=== PATIENT | female | born 1965 | race Caucasian/White ===

== ENCOUNTER 2016-12-20 05:43 | Inpatient (IN) | payer OTHER ==
[2016-12-20] VITALS (19 sets, daily range): BP systolic 91–143; BP diastolic 50–87; PULSE 52–73; RESP 10–33; Ht 160 cm; Wt 47.6 kg
[~2016-12-20] VITALS: Ht 160 cm; Wt 47.6 kg
[2016-12-20] MEDS ORDERED: SOD CHLORIDE 0.9% 100 ML, TRANEXAMIC ACID 3,000 MG IRR SCH ×2 (06:00)
[2016-12-20] MEDS ORDERED: DEXAMETHASONE 1 MG TAB PO SCH (06:00)
[2016-12-20] MEDS ORDERED: TRANEXAMIC ACID 1,000 MG in SOD CHLORIDE 0.9% 100 ML IVPB SCH (06:00)
[2016-12-20] MEDS ORDERED: BUPIVACAINE 0.5% (SDV) 30 ML, morphine SULFATE (PF) 8 MG, EPINEPHrine 0.3 MG, KETOROLAC... IRR SCH ×7 (06:00)
[2016-12-20] MEDS ORDERED: LACTATED RINGER'S 1,000 ML IV* SCH (06:00)
[2016-12-20] MEDS ORDERED: CEFAZOLIN 2 GM/50 ML (PMX) 50 ML IVPB SCH (06:00)
[2016-12-20] MEDS ORDERED: VALA500T PO (06:04)
[2016-12-20] MEDS ORDERED: DOXY100T20 PO (06:04)
[2016-12-20] MEDS ORDERED: CA CHLORIDE 10% 10 ML SYRINGE ONE (06:43)
[2016-12-20] MEDS ORDERED: POLYMYXIN/BACITRACIN 1L IRRIG ONE (06:43)
[2016-12-20] MEDS ORDERED: THROMBIN 5000 UNIT VIAL ONE (06:43)
--- NOTE | 2016-12-20 06:52 | HPN ---
Date/Time of Note Date/Time of Note DATE: 12/20/16 TIME: 06:51 Interval H&P Admission Note Pt. seen H&P reviewed: No system changes SUN BLUNT MD Dec 20, 2016 06:51
[2016-12-20] MEDS ORDERED: CEFAZOLIN 1 GM INJ ONE (07:00)
[2016-12-20] MEDS ORDERED: LIDOCAINE 2% (SDV) 5 ML INJ ONE (07:00)
[2016-12-20] MEDS ORDERED: METOCLOPRAMIDE 10 MG INJ ONE (07:00)
[2016-12-20] MEDS ORDERED: PROPOFOL 20 ML ONE (07:00)
[2016-12-20] MEDS ORDERED: ONDANSETRON 4 MG INJ ONE (07:00)
[2016-12-20] MEDS ORDERED: morphine SULFATE/PF (10 MG/10 ML) INJ ONE (07:00)
[2016-12-20] MEDS ORDERED: HYDROmorphONE 1 MG/ML SYG IV PRN ×2 (09:00)
[2016-12-20] MEDS ORDERED: NALOXONE (0.4 MG/ML) INJ IV PRN ×2 (09:00)
[2016-12-20] MEDS ORDERED: KETOROLAC 30 MG INJ IV PRN (09:00)
[2016-12-20] MEDS ORDERED: EPHEDrine SULFATE 50 MG/5 ML SYG IV PRN (09:00)
[2016-12-20] MEDS ORDERED: morphine 2 MG INJ IV PRN ×2 (09:00→10:00)
[2016-12-20] MEDS ORDERED: morphine 4 MG/ML VIAL IV PRN ×2 (09:00→10:00)
[2016-12-20] MEDS ORDERED: DIPHENHYDRAMINE 50 MG INJ IV PRN ×3 (09:00→10:00)
[2016-12-20] MEDS ORDERED: morphine SULFATE/PF (10 MG/10 ML) INJ SPINAL ONE (09:00)
[2016-12-20] MEDS ORDERED: ONDANSETRON 4 MG INJ IV PRN ×3 (09:00→10:00)
--- NOTE | 2016-12-20 09:02 | OPR ---
Date/Time of Note Date/Time of Note DATE: 12/20/16 TIME: 09:00 Operative Report Procedure Date: Dec 20, 2016 Preoperative Diagnosis Left hip primary arthritis Postoperative Diagnosis Left hip primary arthritis Operation Performed Left total hip arthroplasty Surgeon see signature line Doll Eye Setter: JONY SMITH MD Anesthesia Type: general Estimated Blood Loss: 100 - 150 ml's Transfusion Required: no Complications: no Pt Condition Post Procedure: stable Disposition: PACU Procedure Description QUALITY ASSURANCE LAB TECHNICIAN SURGEON: Jony Smith MD was asked to be present at my request as a result of the complexity associated with this procedure including positioning of the extremity, positioning of the instrumentation and protection of the neurovascular structures. In my opinion, the assistance offered by a junior technical writer is insufficient and Dr. Smith should be compensated for his time. PROCEDURE IN DETAIL: Following the administration of general endotracheal anesthesia supplemented with a spinal anesthetic, the patient was placed in the supine position. The bilateral lower extremities were then prepped and draped in the usual sterile fashion. A payroll director radiograph was obtained for preliminary limb length and femoral size as well as acetabular size. A lateral incision was then made exposing the tensor fascia the fascia was incised the tensor was retracted laterally and the vessels were cauterized. The anterior capsule was then identified and prepared. A capsulectomy was then performed and the femoral head was then evaluated. Severe arthritic changes were noted. A femoral head cut was then made in the appropriate degree of version and inclination. The acetabulum was then exposed and a capsulectomy and labrectomy were completed. The central portion was then entered and serially reamed up to the 45 mm size. A Depuy Glouster cup which is 46 mm in size with a standard liner was then fit into position with solid fixation. A 30 mm screw was used for additional fixation. Attention was then directed to the femur, the femur was exposed and prepared. The canal was entered and serially reamed up to the 8 mm size. A 8 mm Depuy Corail stem was then inserted with solid fixation. A 28 mm, +1.5 femoral head, which was ceramic was then inserted. The leg was taken through full range of motion with no evident instability. In addition, radiographs revealed excellent position with reproduction of the limb lengths within a millimeter. The wound was irrigated thoroughly. The wound was then closed in layers and a Prenio for the final cover. This was watertight. Estimated blood loss was procedure was 150 cc. Postoperative radiographs will be obtained in the recovery room. TRANSFUSION REQUIRED: SUN Graves MD Dec 20, 2016 09:02
--- NOTE | 2016-12-20 09:03 | PDOCDIS ---
Discharge Instructions DIAGNOSIS Discharge Diagnosis Left hip primary arthritis CONDITION Patient Condition: Good HOME CARE INSTRUCTIONS: Diet Instructions: Regular ACTIVITY: Activity Restrictions: Slowly Increase Activity Keep Limb Elevated Bathing Restrictions: Shower SCHOOL/WORK RELEASE May return to School/Work with: With Restrictions School/Work Release Comment: No hip extension for 6 weeks SUN BLUNT MD Dec 20, 2016 09:03
[2016-12-20] MEDS ORDERED: TRANEXAMIC ACID 1,000 MG in SOD CHLORIDE 0.9% 100 ML IV ONE (10:00)
[2016-12-20] MEDS ORDERED: MAGNESIUM HYDROXIDE 30ML CUP PO PRN (10:00)
[2016-12-20] MEDS ORDERED: OXYCODONE/ACETAMINOPHEN (5/325) TAB PO PRN ×2 (10:00)
[2016-12-20] MEDS ORDERED: ACETAMINOPHEN 500 MG TAB PO PRN (10:00)
[2016-12-20] MEDS: CEFAZOLIN 1 GM/50 ML (PMX) 50 ML IVPB SCH ×2 (10:00→17:31)
[2016-12-20] MEDS ORDERED: ZOLPIDEM 5 MG TAB PO PRN (10:00)
[2016-12-20] MEDS ORDERED: BETHANECHOL 25 MG TAB PO PRN (10:00)
[2016-12-20] MEDS ORDERED: KETOROLAC 15 MG INJ IV PRN (10:00)
[2016-12-20 10:05] LABS: BASOPHILS % 0.4 % (0.0-2.0); EOSINOPHILS % 0.4 % (0.0-7.0); HEMATOCRIT 38.6 % (37.0-47.0); HEMOGLOBIN 13.2 g/dl (12.0-16.0); LYMPHOCYTES # 1.9 10^3/ul (0.8-2.9); LYMPHOCYTES % 17.6 % (15.0-51.0); MEAN CORPUSCULAR HEMOGLOBIN 32.8 pg (29.0-33.0); MEAN CORPUSCULAR HGB CONC 34.2 g/dl (32.0-37.0); MEAN CORPUSCULAR VOLUME 95.8 fl (82.0-101.0); MEAN PLATELET VOLUME 9.5 fl (7.4-10.4); MONOCYTE # 0.3 10^3/ul (0.3-0.9); MONOCYTES % 2.4 % (0.0-11.0); NEUTROPHIL # 8.3 10^3/ul (1.6-7.5); NEUTROPHILS % 78.4 % (39.0-77.0); PLATELET COUNT 226 10^3/UL (140-415); RED BLOOD COUNT 4.03 10^6/ul (4.20-5.40); RED CELL DISTRIBUTION WIDTH 12.3 % (11.5-14.5); WHITE BLOOD COUNT 10.5 10^3/ul (4.8-10.8)
[2016-12-20] MEDS: LACTATED RINGER'S 1,000 ML IV SCH ×2 (11:42→20:47)
[2016-12-20] MEDS: VALACYCLOVIR 500 MG TAB PO SCH (12:00)
[2016-12-20] MEDS: DEXAMETHASONE 2 MG TAB PO SCH ×3 (12:19→23:18)
--- NOTE | 2016-12-20 12:24 | RADRPT ---
PROCEDURE: XR Pelvis. CLINICAL INDICATION: Status post left hip replacement. TECHNIQUE: Single AP view of the pelvis. COMPARISON: No prior studies are available for comparison. FINDINGS: Left hip replacement is identified. The prosthetic components are in appropriate position and align ment. The osseous structures are intact. No destructive bony lesions are observed. Mild narrowing right hip joint is identified. Herrmann catheter is seen over the lower pelvis. Soft tissue air over the left hip is procedural in nature. IMPRESSION: Left hip replacement. Prosthetic components are in appropriate position and alignment. Mild osteoarthritis of the right hip. RPTAT: AA .Jose Guadalupe Carter MD, Date Time Electronically viewed and signed by .Jose Guadalupe Carter MD, on 12/20/2016 12:24 .P/
--- NOTE | 2016-12-20 12:25 | RADRPT ---
PROCEDURE: X-ray fluoroscopy guidance CLINICAL INDICATION: Left hip replacement, fluoroscopic guidance TECHNIQUE: Fluoroscopic guidance was utilized for an intraoperative procedure. COMPARISON: None available FINDINGS: Fluoroscopic guidance was utilized for and intraoperative procedure. 0.3 minutes of fluoroscopy time was utilized for the procedure. 5 x-ray images were obtained during the procedure in progress. Marti l images demonstrate a left hip replacement. Prosthetic components appear in appropriate position a nd alignment. IMPRESSION: X-ray fluoroscopic guidance utilized for intraoperative procedure. Left hip replacement with prosthetic components in appropriate position and alignment. Please see procedure note for details. RPTAT: AA .Jose Guadalupe Carter MD, Date Time Electronically viewed and signed by .Jose Guadalupe Carter MD, MD on 12/20/2016 12:25 .P/
[2016-12-20] MEDS: SENNA/DOCUSATE NA (8.6MG/50MG) TAB PO SCH (20:47)
[2016-12-20] MEDS ORDERED: GABAPENTIN 300 MG CAP PO SCH (21:00)
[2016-12-21 00:04] VITALS: BP 104/63; RESP 18
[2016-12-21] MEDS: CEFAZOLIN 1 GM/50 ML (PMX) 50 ML IVPB SCH (00:56)
[2016-12-21] MEDS: DEXAMETHASONE 2 MG TAB PO SCH (05:12)
[2016-12-21 05:30] VITALS: BP 101/64; PULSE 64; RESP 20
[2016-12-21] MEDS: LACTATED RINGER'S 1,000 ML IV SCH (05:40)
[2016-12-21 06:15] LABS: BASOPHILS % 0.1 % (0.0-2.0); HEMATOCRIT 37.1 % (37.0-47.0); HEMOGLOBIN 12.8 g/dl (12.0-16.0); LYMPHOCYTES # 1.2 10^3/ul (0.8-2.9); LYMPHOCYTES % 7.3 % (15.0-51.0); MEAN CORPUSCULAR HEMOGLOBIN 32.9 pg (29.0-33.0); MEAN CORPUSCULAR HGB CONC 34.5 g/dl (32.0-37.0); MEAN CORPUSCULAR VOLUME 95.4 fl (82.0-101.0); MEAN PLATELET VOLUME 10.3 fl (7.4-10.4); MONOCYTE # 0.7 10^3/ul (0.3-0.9); MONOCYTES % 4.3 % (0.0-11.0); NEUTROPHIL # 13.9 10^3/ul (1.6-7.5); NEUTROPHILS % 87.9 % (39.0-77.0); PLATELET COUNT 257 10^3/UL (140-415); RED BLOOD COUNT 3.89 10^6/ul (4.20-5.40); RED CELL DISTRIBUTION WIDTH 12.3 % (11.5-14.5); WHITE BLOOD COUNT 15.8 10^3/ul (4.8-10.8)
--- NOTE | 2016-12-21 07:10 | PN ---
Date/Time of Note Date/Time of Note DATE: 12/21/16 TIME: 07:09 24 hour Interval Summary Patient is awake and alert and ambulating already. Physical Exam Physical examination: She is comfortable. She has no tenderness. Her was clean and dry. She has no signs of DVT. Vital Signs Date Time Temp Pulse Resp B/P Pulse Ox O2 Delivery O2 Flow Rate FiO2 12/21/16 00:04 98.6 66 18 104/63 97 12/20/16 12:00 Room Air Intake and Output 12/20/16 12/20/16 12/21/16 15:00 23:00 07:00 Intake Total 2750 ml 1530 ml Output Total 150 ml 400 ml Balance 2600 ml 1130 ml VTE Prophylaxis VTE Prophylaxis Intervention: anti-embolic stocking Lines/Catheters IV Catheter Type: Saline Lock Herrmann in Place: No Results Result Diagram: 12/21/16 0456 Results 24hrs Laboratory Tests Test 12/20/16 09:57 12/21/16 04:56 White Blood Count 10.5 15.8 #H Red Blood Count 4.03 L 3.89 L Hemoglobin 13.2 12.8 Hematocrit 38.6 37.1 Mean Corpuscular Volume 95.8 95.4 Mean Corpuscular Hemoglobin 32.8 32.9 Mean Corpuscular Hemoglobin Concent 34.2 34.5 Red Cell Distribution Width 12.3 12.3 Platelet Count 226 257 Mean Platelet Volume 9.5 10.3 Neutrophils % 78.4 H 87.9 H Lymphocytes % 17.6 7.3 L Monocytes % 2.4 4.3 Eosinophils % 0.4 0.0 Basophils % 0.4 0.1 Nucleated Red Blood Cells % 0.0 0.0 Neutrophils # 8.3 H 13.9 H Lymphocytes # 1.9 1.2 Monocytes # 0.3 0.7 Eosinophils # 0.0 0.0 Basophils # 0.0 0.0 Nucleated Red Blood Cells # 0.0 0.0 Assessment/Plan Assessment/Plan Assessment: Status post total hip Plan: She will begin physical therapy and be discharged later today. Medications Medications Home Meds Reported Medications Doxycycline Hyclate* (Doxycycline Hyclate*) 100 Mg Tablet.dr, 100 MG PO BID, TAB 12/20/16 Valacyclovir Hcl* (Valacyclovir Hcl*) 500 Mg Tablet, 1 GM PO DAILY, TAB 12/20/16 SUN BLUNT MD Dec 21, 2016 07:10
--- NOTE | 2016-12-21 07:11 | DS ---
Date/Time of Note Date/Time of Note DATE: 12/21/16 TIME: 07:10 Discharge Summary Admission/Discharge Info Admit Date/Time Dec 20, 2016 at 05:43 Discharge Date/Time December 21, 2016 following therapy Discharge Diagnosis Left hip primary arthritis Patient Condition: Good Procedures Left total hip arthroplasty Hx of Present Illness Pain and stiffness for several years Hospital Course She underwent an uncomplicated procedure. Postoperative day #1 she was afebrile comfortable discharged to be followed up at home Home Meds Reported Medications Doxycycline Hyclate* (Doxycycline Hyclate*) 100 Mg Tablet.dr, 100 MG PO BID, TAB 12/20/16 Valacyclovir Hcl* (Valacyclovir Hcl*) 500 Mg Tablet, 1 GM PO DAILY, TAB 12/20/16 Primary Care Provider Not On Staff Doctor Pending Labs Laboratory Tests Test 12/20/16 09:57 12/21/16 04:56 White Blood Count 10.510^3/ul (4.8-10.8) 15.810^3/ul (4.8-10.8) Red Blood Count 4.0310^6/ul (4.20-5.40) 3.8910^6/ul (4.20-5.40) Hemoglobin 13.2g/dl (12.0-16.0) 12.8g/dl (12.0-16.0) Hematocrit 38.6% (37.0-47.0) 37.1% (37.0-47.0) Mean Corpuscular Volume 95.8fl (82.0-101.0) 95.4fl (82.0-101.0) Mean Corpuscular Hemoglobin 32.8pg (29.0-33.0) 32.9pg (29.0-33.0) Mean Corpuscular Hemoglobin Concent 34.2g/dl (32.0-37.0) 34.5g/dl (32.0-37.0) Red Cell Distribution Width 12.3% (11.5-14.5) 12.3% (11.5-14.5) Platelet Count 63907^3/UL (140-415) 22297^3/UL (140-415) Mean Platelet Volume 9.5fl (7.4-10.4) 10.3fl (7.4-10.4) Neutrophils % 78.4% (39.0-77.0) 87.9% (39.0-77.0) Lymphocytes % 17.6% (15.0-51.0) 7.3% (15.0-51.0) Monocytes % 2.4% (0.0-11.0) 4.3% (0.0-11.0) Eosinophils % 0.4% (0.0-7.0) 0.0% (0.0-7.0) Basophils % 0.4% (0.0-2.0) 0.1% (0.0-2.0) Nucleated Red Blood Cells % 0.0/100WBC (0.0-0.0) 0.0/100WBC (0.0-0.0) Neutrophils # 8.310^3/ul (1.6-7.5) 13.910^3/ul (1.6-7.5) Lymphocytes # 1.910^3/ul (0.8-2.9) 1.210^3/ul (0.8-2.9) Monocytes # 0.310^3/ul (0.3-0.9) 0.710^3/ul (0.3-0.9) Eosinophils # 0.010^3/ul (0.0-0.5) 0.010^3/ul (0.0-0.5) Basophils # 0.010^3/ul (0.0-0.1) 0.010^3/ul (0.0-0.1) Nucleated Red Blood Cells # 0.010^3/ul (0.0-0.0) 0.010^3/ul (0.0-0.0) SUN BLUNT MD Dec 21, 2016 07:11
[2016-12-21] MEDS: SENNA/DOCUSATE NA (8.6MG/50MG) TAB PO SCH (08:28)
[2016-12-21 08:30] VITALS: BP 114/70; RESP 18
[2016-12-21] MEDS ORDERED: ASPIRIN 81 MG TAB PO SCH (09:00)
[2016-12-21] MEDS: VALACYCLOVIR 500 MG TAB PO SCH (09:00)
== END 2016-12-21 10:40 | disposition home or self-care (01) | DRG 470 ==
LOC: REC 05:43 → MS1 10:47
PROVIDERS: ADMIT Orthopaedic Surgery; ATTEND Orthopaedic Surgery
PROC: 0SRB04A Replacement of Left Hip Joint with Ceramic on Polyethylene Synthetic Substitute, Uncemented, Open Approach (ICD-10-PCS; principal; 2016-12-20 07:00)
DX: M16.12 Unilateral primary osteoarthritis, left hip (principal)
CPT/HCPCS: 72170; 73530; 85025; 86999; 87086; 97161; C1713; C1776; J0171; J0690; J0735; J1200; J1885; J2274; J2405; J2765; J3370; J7120